=== PATIENT | male | born 1965 | race Caucasian/White ===

== ENCOUNTER 2023-10-23 12:50 | Outpatient (CLI) | payer OTHER, SELFPAY ==
--- NOTE | ~2023-10-23 | CT_ITS ---
Non-contrast CT scan of the Pelvis Clinical indication: Hip pain Technique: 2.5 mm axial scans were obtained through the pelvis without intravenous or oral contrast. Dose reduction technique was used on this scan by utilizing automated exposure control and iterative reconstruction technique. The dose-length product (DLP) was 433.11 mGy-cm. Findings: Urinary bladder unremarkable. Prostate gland mildly enlarged. No ascites. No pelvic/inguina l lymphadenopathy seen. Visualized bowel loops are unremarkable. There is atherosclerotic calcificati on of the distal abdominal aorta and iliac vessels. No acute fracture or dislocation seen. Bilateral hip and SI joint spaces are preserved. No joint effu asa. Visualized musculature is grossly unremarkable. Impression: No significant abnormality of the hips or SI joints seen. Reviewed, dictated and finalized at [facility]. Impression: No significant abnormality of the hips or SI joints seen.
== END 2023-10-23 12:51 ==
LOC: GOSHIMG 12:54
PROVIDERS: PCP Family Medicine
DX: M48.061 Spinal stenosis, lumbar region without neurogenic claudication (principal); M47.26 Other spondylosis with radiculopathy, lumbar region
CPT/HCPCS: 72192

== ENCOUNTER 2023-11-15 08:54 | Outpatient (CLI) | payer OTHER, SELFPAY ==
--- NOTE | ~2023-11-15 | MR_ITS ---
EXAMINATION: MR hip RT wo con DATE: 11/15/2023 10:17 INDICATION: Right hip pain TECHNIQUE: Magnetic resonance imaging (MRI) of the affected hip was performed without intravenous co ntrast. Sequences included full-field axial PD-weighted FS FSE and T1-weighted FSE, coronal of the pe lvis with PD-weighted FS FSE, small field of view of the affected hip with axial PD-weighted FS FSE, sagittal PD-weighted FS FSE and coronal PD weighted FS FSE. Additional radial T1-weighted FGR orient ed orthogonal to the acetabular rim were obtained for evaluation of the labrum. COMPARISON: CT dated 10/23/2023 FINDINGS: Bones/labrum/cartilage: 5 degrees lumbar levocurvature with mild spondylosis. Postoperative change of a prior right L4-L5 hem ilaminotomy. Alignment is otherwise normal. No fracture, avascular necrosis or pathologic marrow repl acing process. There is mild osteoarthritis at the right hip with mild partial-thickness cartilage lo ss with nonuniform partial-thickness cartilage loss predominantly along the posterior and anterosuper ior aspects of the joint space. There is amorphous increased signal along the anterosuperior and post erosuperior right acetabular labrum likely combination of labral degeneration and calcification relat ed to osteophyte formation along the rim of the acetabulum. Fluid: Symmetric physiologic amount of fluid within both hip joints. Soft tissues: Normal and symmetric muscle bulk and signal in the pelvis and visualized proximal thighs. Small focus of low signal intensity with minimal surrounding increased signal along the anterior margin of the t rochanteric insertion of the right gluteus medius tendon which appears to correspond to small amount of enthesopathic calcification/ossification. Similar tiny focus of calcification at the left greater trochanteric insertion of the anterior left gluteus medius tendon. The iliopsoas, gluteal and proxima l hamstring tendons are otherwise normal. Prostatomegaly measuring 5.5 x 4.1 cm. Limited evaluation o f visceral organs of the pelvis is otherwise unremarkable. No pathologically enlarged pelvic/inguina l lymphadenopathy. IMPRESSION: 1. Mild right hip osteoarthritis with mild likely chronic labral degeneration. 2. Chronic mild enthesopathy at the greater trochanteric insertions of the bilateral gluteus medius t endons. Reviewed, dictated and finalized at [facility]. IMPRESSION: 1. Mild right hip osteoarthritis with mild likely chronic labral degeneration. 2. Chronic mild enthesopathy at the greater trochanteric insertions of the bila teral gluteus medius tendons.
== END 2023-11-15 08:55 ==
LOC: GOSHIMG 08:55
PROVIDERS: PCP Family Medicine; Visit Provider Family Medicine
DX: M16.11 Unilateral primary osteoarthritis, right hip (principal)
CPT/HCPCS: 73721